=== PATIENT | male | born 1995 | race Two or more races ===

== ENCOUNTER 2017-01-08 14:29 | Emergency (ER) | payer OTHER ==
--- NOTE | 2017-01-08 16:18 | ER Document Report ---
ED GI/ - General Chief Complaint: Rib Pain Stated Complaint: ABDOMINAL PAIN Time Seen by Provider: 01/08/17 15:51 Mode of Arrival: Ambulatory Information source: Patient Notes: 20-year-old male presents to ED for right upper quadrant abdominal pain right flank pain states the pain is been bad in this area for about 3 days. He denies any fever but states he has been nausea and vomiting for close to 3 years off and on. States he has been diagnosed with H. pylori and reflux. States he was treated while in the [place] about 3 years ago and the symptoms went away 2 weeks later but then they came back. States he has had that pain in his abdomen into his esophagus off and on since 3 years ago but this pain in his upper right quadrant through to his back has been mostly for the last 3 days. TRAVEL OUTSIDE OF THE [place] IN LAST 30 DAYS: No - HPI Patient complains to provider of: Abdominal pain, Flank pain, Vomiting Onset: Other - Chronic nausea and vomiting, chronic esophageal pain, pain to the right upper quadrant through to the right upper back has been for about the last 3 days. Timing/Duration: Intermittent Quality of pain: Achy, Sharp Severity at maximum: Moderate Severity in ED: Moderate Pain Level: 4 Location: Epigastric, RUQ, Right flank Associated symptoms: Nausea, Vomiting Exacerbated by: Supine, Food Relieved by: Denies Similar symptoms previously: Yes Recently seen / treated by doctor: No - Related Data Allergies/Adverse Reactions: No Known Allergies Allergy (Verified 01/08/17 14:53) Past Medical History - General Information source: Patient - Social History Smoking Status: Never Smoker Cigarette use (# per day): No Chew tobacco use (# tins/day): No Smoking Education Provided: No Frequency of alcohol use: hx etoh abuse Drug Abuse: None 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 Lives with: Spouse/Significant other Family History: CAD, COPD, CVA, DM, Hyperlipidemia, Hypertension, Malignancy Patient has suicidal ideation: No Patient has homicidal ideation: No - Past Medical History Cardiac Medical History: Reports: None Pulmonary Medical History: Reports: None EENT Medical History: Reports: None Neurological Medical History: Reports: None Endocrine Medical History: Reports: None Renal/ Medical History: Reports: None Malignancy Medical History: Reports None GI Medical History: Reports: Hx Gastroesophageal Reflux Disease, Other - h pylori Musculoskeltal Medical History: Reports Hx Musculoskeletal Deformity, Reports Hx Musculoskeletal Trauma Skin Medical History: Reports None Psychiatric Medical History: Reports: None Traumatic Medical History: Reports: None Infectious Medical History: Reports: None Surgical Hx: Negative Past Surgical History: Reports: None - Immunizations Immunizations up to date: Yes Hx Diphtheria, Pertussis, Tetanus Vaccination: Yes Review of Systems - Review of Systems Constitutional: No symptoms reported EENT: No symptoms reported Cardiovascular: No symptoms reported Respiratory: No symptoms reported Gastrointestinal: No symptoms reported Genitourinary: No symptoms reported Male Genitourinary: No symptoms reported Musculoskeletal: No symptoms reported Skin: No symptoms reported Hematologic/Lymphatic: No symptoms reported Neurological/Psychological: No symptoms reported -: Yes All other systems reviewed and negative Physical Exam - Vital signs Vitals: Temp Pulse Resp BP Pulse Ox 99.2 F 74 16 134/79 H 96 01/08/17 14:56 01/08/17 14:56 01/08/17 14:56 01/08/17 14:56 01/08/17 14:56 Interpretation: Normal - General General appearance: Appears well, Alert - HEENT Head: Normocephalic, Atraumatic Eyes: Normal Pupils: PERRL - Respiratory Respiratory status: No respiratory distress Chest status: Nontender Breath sounds: Normal Chest palpation: Normal - Cardiovascular Rhythm: Regular Heart sounds: Normal auscultation Murmur: No - Abdominal Inspection: Normal Distension: No distension Bowel sounds: Normal Tenderness: Tender Organomegaly: No organomegaly - Back Back: Normal, Nontender - Extremities General upper extremity: Normal inspection, Nontender, Normal color, Normal ROM , Normal temperature General lower extremity: Normal inspection, Nontender, Normal color, Normal ROM , Normal temperature, Normal weight bearing. No: Pricilla's sign - Neurological Neuro grossly intact: Yes Cognition: Normal Orientation: AAOx4 Efe Coma Scale Eye Opening: Spontaneous Efe Coma Scale Verbal: Oriented [place] Coma Scale Motor: Obeys Commands Efe Coma Scale Total: 15 Speech: Normal Motor strength normal: LUE, RUE, LLE, RLE Sensory: Normal - Psychological Associated symptoms: Normal affect, Normal mood - Skin Skin Temperature: Warm Skin Moisture: Dry Skin Color: Normal Course - Re-evaluation Re-evalutation: 01/08/17 19:50 21-year-old male presents to ED for right upper quadrant right lower rib and right flank pain. He states he has had this pain off and on for 3 years but it was worse for the last 3 days. He states the pain in the upper abdomen started about 3 days ago but he does have a history of H. pylori and ulcers. He states he has an appointment with the MA on January 15. - Vital Signs Vital signs: Temp Pulse Resp BP Pulse Ox 99.2 F 74 16 134/79 H 96 01/08/17 14:56 01/08/17 14:56 01/08/17 14:56 01/08/17 14:56 01/08/17 14:56 - Laboratory Result Diagrams: 01/08/17 16:45 01/08/17 16:45 - Diagnostic Test Radiology reviewed: Image reviewed, Reports reviewed Discharge - Discharge Clinical Impression: Right upper quadrant abdominal pain Condition: Stable Disposition: HOME, SELF-CARE Instructions: Evaluation of Upper Abdominal Pain ([facility]) Additional Instructions: ABDOMINAL PAIN: There are many causes of abdominal pain. Pain can mean a serious problem requiring surgery (such as appendicitis). It can also be an innocent problem that goes away on its own (such as a viral infection). Often, time must pass to determine the cause of pain. The physician does not feel that hospitalization is necessary, at present. Things may change within the next 24 hours. Call the doctor or come back for re- examination if any problems occur, such as: (1) Pain that becomes more severe, steady, or becomes concentrated in one specific area. Also, pain that is more severe with movement or coughing. (2) Vomiting that persists or becomes more frequent. (3) Blood in the vomitus, urine, or bowel movements. Blood in the stool may have a tarry or black appearance. (4) Shaking chills or fever greater than 100 degrees F. (5) The abdomen becomes more distended or swollen. (6) Bowel movements cease. (7) Failure to improve as expected. NORMAL EXAM AND WORKUP: At this time, your examination and workup show no significant abnormality. No significant abnormal physical findings are noted. All laboratory, EKG, and imaging (x-ray, CT scans, ultrasound) studies that were ordered show no significant abnormality. Although your examination and all studies that were ordered showed no significant abnormal finding, there are no examinations and no studies that are 100% accurate. There is always the possibility that some abnormality could exist and not be detected with physical examination or within the limits and capabilities of laboratory and other studies. You should return or follow up as you were instructed on your visit today for further evaluation if your symptoms do not resolve. Acid-Suppressing Medication You have a prescription for medicine which reduces the stomach's secretion of acid. Examples include Zantac, Tagament, and Pepcid. These drugs are often used to allow healing of ulcers or esophagitis. They may be needed to prevent recurrence of ulcers in some patients, or to prevent damage from acid reflux in the esophagus. Take all medication as prescribed, even after the pain is gone. Regular antacids may be added as needed if you have symptoms while taking this medicine. These medications sometimes are prescribed for allergic reactions because they have anti-histaminic effects and relieve the rash and itching of the reaction. There are usually no side effects from this medication. But, in rare cases and particularly in the elderly, serious problems can occur. Contact your doctor if there is fever, rash, hallucinations, confusion, or unusual bruising. Contact your doctor at once if you develop lightheadedness, black or bloody stool, or bloody vomitus. FOLLOW-UP CARE: If you have been referred to a physician for follow-up care, call the physician s office for an appointment as you were instructed or within the next two days. If you experience worsening or a significant change in your symptoms, notify the physician immediately or return to the Emergency Department at any time for re-evaluation. Prescriptions: Famotidine [Pepcid 20 mg Tablet] 20 mg PO DAILY #12 tablet Forms: Elevated Blood Pressure, Return to Work
[2017-01-08 17:05] LABS: ABSOLUTE BASOPHILS # (AUTO) 0.1 10^3/uL (0.0-0.2); ABSOLUTE EOSINOPHILS # (AUTO) 0.4 10^3/uL (0.0-0.6); ABSOLUTE MONOCYTES (AUTO) 0.7 10^3/uL (0.1-1.4); ABSOLUTE NEUT (AUTO) 6.3 10^3/uL (1.7-8.2); BASOPHILS % (AUTO) 0.7 % (0-2); EOSINOPHILS % (AUTO) 4.6 % (0-6); HEMATOCRIT 46.4 % (37.9-51.0); HEMOGLOBIN 15.9 g/dL (13.5-17.0); HGB HCT DIFFERENCE 1.3; LYMPHOCYTES % (AUTO) 21.3 % (13-45); MEAN CORPUSCULAR HEMOGLOBIN 28.6 pg (27.0-33.4); MEAN CORPUSCULAR HGB CONC 34.3 g/dL (32.0-36.0); MEAN CORPUSCULAR VOLUME 84 fl (80-97); MONOCYTES % (AUTO) 7.2 % (3-13); RED BLOOD COUNT 5.55 10^6/uL (4.35-5.55); RED CELL DISTRIBUTION WIDTH 13.3 % (11.5-14.0); SEGMENTED NEUTROPHILS % (AUTO) 66.2 % (42-78); WHITE BLOOD COUNT 9.4 10^3/uL (4.0-10.5)
[2017-01-08 17:22] LABS: ALANINE AMINOTRANSFERASE 29 U/L (21-72); ALBUMIN 4.5 g/dL (3.5-5.0); ALKALINE PHOSPHATASE 67 U/L (38-126); ANION GAP 11 (5-19); ASPARTATE AMINO TRANSFERASE 23 U/L (17-59); BILIRUBIN,DIRECT 0.4 mg/dL (0.0-0.4); BILIRUBIN,TOTAL 0.5 mg/dL (0.2-1.3); BLOOD UREA NITROGEN 20 mg/dL (7-20); CALCIUM 9.7 mg/dL (8.4-10.2); CARBON DIOXIDE 27 mmol/L (22-30); CHLORIDE 104 mmol/L (98-107); CREATININE RESULT 1.21 mg/dL (0.52-1.25); GLUCOSE 94 mg/dL (75-110); LIPASE 67.2 U/L (23-300); SODIUM 141.8 mmol/L (137-145); TOTAL PROTEIN 7.4 g/dL (6.3-8.2)
--- NOTE | 2017-01-08 18:58 | RADIOLOGY REPORT (SQ) ---
EXAM DESCRIPTION: U/S ABDOMEN LIMITED W/O DOP COMPLETED DATE/TIME: 01/08/2017 6:30 pm REASON FOR STUDY: ruq abdominal pain COMPARISON: None. TECHNIQUE: Dynamic and static grayscale images acquired of the right upper quadrant and recorded on PACS. Additional selected color Doppler and spectral images recorded. LIMITATIONS: Study limited due to acoustical interference from fat or from air in the bowel. FINDINGS: PANCREAS: Visualized pancreas and duct normal. Parts of pancreas poorly seen secondary to acoustical interference from fat or from air in the bowel. LIVER: No masses. Echotexture normal. LIVER VASCULATURE: Normal directional flow of the main portal vein and hepatic veins. GALLBLADDER: No stones. Normal wall thickness. No pericholecystic fluid. ULTRASOUND-DETECTED SANZ'S SIGN: Negative. INTRAHEPATIC DUCTS AND COMMON DUCT: CBD and intrahepatic ducts normal caliber. No filling defects. INFERIOR VENA CAVA: Normal flow. AORTA: No aneurysm. RIGHT KIDNEY: Normal size. Normal echogenicity. No solid or suspicious masses. No hydronephrosis. No calcifications. PERITONEAL CAVITY AND RIGHT PLEURAL SPACE: No ascites or effusions. OTHER: No other significant finding. IMPRESSION: NORMAL RIGHT UPPER QUADRANT ULTRASOUND. PANCREAS PARTIALLY OBSCURED BY GAS. TECHNICAL DOCUMENTATION: JOB ID: [id number] [email or web address]- All Rights Reserved
[2017-01-08] MEDS ORDERED: CALCIUM CARBONATE 500 MG TAB.CHEW PO ONE (19:40)
[2017-01-08 20:04] VITALS: BP 123/73
== END 2017-01-08 20:04 | disposition home or self-care (01) ==
LOC: ER 14:29
DX: R10.11 Right upper quadrant pain (principal); R10.9 Unspecified abdominal pain; R07.81 Pleurodynia; R11.2 Nausea with vomiting, unspecified; Z87.19 Personal history of other diseases of the digestive system
CPT/HCPCS: 36415; 76705; 80053; 83690; 85025; 99284

== ENCOUNTER 2020-04-13 20:44 | Emergency (ER) | payer OTHER ==
--- NOTE | 2020-04-13 21:30 | ER Document Report ---
ED Extremity Problem, Lower - General Chief Complaint: Foot Pain Stated Complaint: FOOT PAIN Time Seen by Provider: 04/13/20 21:23 Mode of Arrival: Ambulatory Information source: Patient Notes: Patient is a 25-year-old male comes emergency room complaining of a blister type lesion to the right foot at the base of the great toe. 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 Patient states he knew that there was something that was bothering him but did not know what. We got home he took it off and he had a blister that was turning black in the middle on the ball of the right foot big toe. He also noticed that there was some redness to the rest of the toe and surrounding area. Since that point time that area has gotten a little bit more pronounced in its presentation of being necrotic and has gotten more red around the toe itself. Patient's has cleaned it twice but it does not seem to be getting much better so he is here for evaluation. Patient only has a medical history for hypertension and bipolar disease. As well as some reflux. Patient does not smoke. Patient denies any history of diabetes. TRAVEL OUTSIDE OF THE [place] IN LAST 30 DAYS: No - Related Data Allergies/Adverse Reactions: No Known Allergies Allergy (Verified 01/08/17 14:53) Past Medical History - General Information source: Patient - Social History Smoking Status: Never Smoker Cigarette use (# per day): No Chew tobacco use (# tins/day): No Smoking Education Provided: No Frequency of alcohol use: None Drug Abuse: None Lives with: Family Family History: Reviewed & Not Pertinent, CAD, COPD, CVA, DM, Hyperlipidemia, Hypertension, Malignancy Renal/ Medical History: Denies: Hx Peritoneal Dialysis GI Medical History: Reports: Hx Gastroesophageal Reflux Disease Musculoskeletal Medical History: Reports Hx Musculoskeletal Deformity, Reports Hx Musculoskeletal Trauma - Immunizations Immunizations up to date: Yes Hx Diphtheria, Pertussis, Tetanus Vaccination: Yes Review of Systems - Review of Systems Constitutional: No symptoms reported EENT: No symptoms reported Cardiovascular: No symptoms reported Respiratory: No symptoms reported Gastrointestinal: No symptoms reported Genitourinary: No symptoms reported Male Genitourinary: No symptoms reported Musculoskeletal: No symptoms reported Skin: See HPI, Lesions Hematologic/Lymphatic: No symptoms reported Neurological/Psychological: No symptoms reported -: Yes All other systems reviewed and negative Physical Exam - Vital signs Vitals: Temp Pulse Resp BP Pulse Ox 97.9 F 66 17 152/91 H 98 04/13/20 20:50 04/13/20 20:50 04/13/20 20:50 04/13/20 20:50 04/13/20 20:50 Interpretation: Hypertensive - Notes Notes: PHYSICAL EXAMINATION: GENERAL: Patient is a well-nourished well-developed 25-year-old male no apparent distress but does appear uncomfortable. HEAD: Atraumatic, normocephalic. LUNGS: Breath sounds clear to auscultation bilaterally and equal. No wheezes rales or rhonchi. HEART: Regular rate and rhythm without murmurs Musculoskeletal: Normal range of motion, no pitting or edema. No cyanosis. NEUROLOGICAL: Normal speech, normal gait. Normal sensory, motor exams PSYCH: Normal mood, normal affect. SKIN: Examination patient's area concern is at the base of his right great toe lateral side he has a 1 cm x 1 cm blister appearance that has ruptured with a half a centimeter high wall into the dermis and not black and echar in the center. Patient has flexion-extension of his toe but it does appear to be comfortable. He has good cap refill in nailbeds of the toes of the right foot. He has flexion-extension of all toes the right foot. The great toe does appear to be somewhat more swollen than the rest of the toes. And is much more erythematous on the great toe circumferentially then it is to the second toe. The dorsum of the foot has a slight amount of erythema as well. Course - Re-evaluation Re-evalutation: 04/13/20 21:26 I discussed the case with my attending Dr. Panchal she feels that the sodium hydroxide has very limited potency and that evaluation of it shows it to be a very superficial lesion or we can treat it with antibiotics and cream. I have elected to go ahead and do an x-ray just to make sure there is no deep penetration that I can see. I really believe this to be just a small blister that has some black echar on it. 04/13/20 22:59 Patient's x-ray came back not showing any deep penetration or gaseous formation. Given that it appears to be superficial we will go and place him on some doxycycline twice a day for the next 10 days. I am also given referral to [facility]ound care and have them give them a call tomorrow or Friday to set up an appointment. Have instructed patient should he get worse she is to return to ER especially if he spikes a fever or the toe starts to get much bigger. - Vital Signs Vital signs: Temp Pulse Resp BP Pulse Ox 97.9 F 66 17 152/91 H 98 04/13/20 20:50 04/13/20 20:50 04/13/20 20:50 04/13/20 20:50 04/13/20 20:50 04/13/20 23:00 Currently had no tach so I went ahead and cleaned and dressed the wound. I applied some Neosporin to the wound with nonstick pad it with 2 x 2's and then wrapped in Kerlix. Patient stated felt much better that way. Discharge - Discharge Clinical Impression: Cellulitis of foot, Chemical burn Condition: Stable Disposition: HOME, SELF-CARE Instructions: Oral Narcotic Medication ([facility]), Soap Cleansing ([facility]) Additional Instructions: As we discussed I want you to soak your foot in the Hibiclens solution 3 times a day with warm water. Let air dry really good before applying any more antibiotic. I am also going to write you for Bactroban cream or ointment which you can apply to the wound for the next several days when you change her dressing. I am also pushing oral antibiotics as well. I am giving you the information to contact [facility] which is the wound care clinic you can contact them telling them that we have requested she be evaluated for the wound on your foot and set up an appointment. As we have also discussed that should you notice this increasing and getting worse you should return to ER immediately for reevaluation. I have given you referral to [facility] which runs the wound care clinic as stated contact them to see how you can get into the wound care. Prescriptions: Mupirocin [Bactroban 2% Ointment 22 gm] 1 applic TP TID #1 tube Doxycycline Hyclate [Morgidox] 100 mg PO BID #20 capsule Forms: Elevated Blood Pressure, Return to Work Referrals: [facility] [Provider Group] - Follow up as needed
--- NOTE | 2020-04-13 22:20 | RADIOLOGY REPORT (SQ) ---
EXAM DESCRIPTION: FOOT RIGHT COMPLETE CLINICAL HISTORY: 25 years Male, necrotic appearing lesion COMPARISON: None. FINDINGS: There is focal soft tissue swelling over the distal foot along the dorsal surface. Alignment the foot is anatomic. Bone mineralization is normal. No radiopaque foreign body in the soft tissues. No fracture is seen. No erosions or periostitis. IMPRESSION: Soft tissue swelling. No air in the soft tissues. No fracture.
[2020-04-13] MEDS ORDERED: DOXYCYCLINE HYCLATE 100 MG TABLET PO ONE (22:58)
[2020-04-13] MEDS ORDERED: HYDROCODONE/ACETAMINOPHEN 5-325 MG (6 TAB/ER DISP) PO PRN (22:59)
[2020-04-14 05:16] VITALS: BP 140/84
== END 2020-04-13 23:45 | disposition home or self-care (01) ==
LOC: ER 20:44
DX: L03.115 Cellulitis of right lower limb (principal); T54.3X1A Toxic effect of corrosive alkalis and alkali-like substances, accidental (unintentional), initial encounter; M79.671 Pain in right foot; Y92.511 Restaurant or cafe as the place of occurrence of the external cause; Y99.0 Civilian activity done for income or pay
CPT/HCPCS: 99284

== ENCOUNTER 2020-04-17 11:39 | Emergency (ER) | payer OTHER ==
[2020-04-17 11:45] VITALS: BP 141/84
[2020-04-17] MEDS ORDERED: CEPHALEXIN 500 MG CAPSULE PO ONE (12:37)
[2020-04-17] MEDS ORDERED: IBUPROFEN 800 MG TABLET PO ONE (12:37)
--- NOTE | 2020-04-17 12:52 | ER Document Report ---
HPI - HPI Patient complains to provider of: Wound check Time Seen by Provider: 04/17/20 12:30 Onset: Other - 5 days Onset/Duration: Persistent Quality of pain: Achy Pain Level: 4 Context: Patient states that he burned his foot with a chemical 5 days ago. Patient states he was wearing shoes at the time. Patient states that he was cleaning the wound with peroxide initially but has since switched to an antibacterial soap. Patient states he was seen here recently and placed on antibiotics. Patient states that the wound was looking infected which prompted his visit. Patient denies any fever. Patient is concerned about possible diabetes as he has a family history of diabetes. Associated Symptoms: Other - Tenderness to right foot wound. denies: Fever Exacerbated by: Movement, Walking Relieved by: Denies Similar symptoms previously: No Recently seen / treated by doctor: Yes - ROS ROS below otherwise negative: Yes Systems Reviewed and Negative: Yes All other systems reviewed and negative - CONSTITUTIONAL Constitutional: DENIES: Fever, Chills - GASTROINTESTINAL Gastrointestinal: DENIES: Nausea, Patient vomiting - MUSCULOSKELETAL Musculoskeletal: REPORTS: Extremity pain - DERM Skin Color: Erythema Notes: Wound to right foot Past Medical History - General Information source: Patient - Social History Smoking Status: Never Smoker Frequency of alcohol use: None Drug Abuse: None 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 Family History: Reviewed & Not Pertinent, CAD, COPD, CVA, DM, Hyperlipidemia, Hypertension, Malignancy Renal/ Medical History: Denies: Hx Peritoneal Dialysis GI Medical History: Reports: Hx Gastroesophageal Reflux Disease Musculoskeletal Medical History: Reports Hx Musculoskeletal Deformity, Reports Hx Musculoskeletal Trauma Psychiatric Medical History: Reports: Hx Attention Deficit Hyperactivity Disorder, Hx Bipolar Disorder, Hx Depression, Hx Post Traumatic Stress Disorder Surgical Hx: Negative - Immunizations Immunizations up to date: Yes Hx Diphtheria, Pertussis, Tetanus Vaccination: Yes Vertical Provider Document - CONSTITUTIONAL Agree With Documented VS: Yes Exam Limitations: No Limitations General Appearance: WD/WN, No Apparent Distress - INFECTION CONTROL TRAVEL OUTSIDE OF THE [place] IN LAST 30 DAYS: No - HEENT HEENT: Atraumatic, Normocephalic - NECK Neck: Normal Inspection - RESPIRATORY Respiratory: Breath Sounds Normal, No Respiratory Distress - CARDIOVASCULAR Cardiovascular: Regular Rate, Regular Rhythm Pulses: Normal: Dorsalis pedis - MUSCULOSKELETAL/EXTREMETIES Musculoskeletal/Extremeties: MAEW, Tender - Tenderness right great foot, patient with ulceration with minimal erythema surrounding wound margins with an eschar over lying the wound bed - NEURO Level of Consciousness: Awake, Alert, Appropriate Motor/Sensory: No Motor Deficit - DERM Integumentary: Warm, Dry Notes: Wound erythema surrounding the wound to lateral aspect of right metatarsal Course - Re-evaluation Re-evalutation: 04/17/20 12:50 Patient was concerned about possible underlying diabetes, Accu-Chek reviewed, no concern for diabetes. Patient encouraged to continue his doxycycline as well as mupirocin in addition to Keflex that we will be adding today. Patient advised on wound management and worsening signs that he should return immediately for. Patient verbalized understanding and is agreeable discharge plan of care. - Vital Signs Vital signs: Temp Pulse Resp BP Pulse Ox 97.7 F 70 16 141/84 H 99 04/17/20 11:43 04/17/20 11:43 04/17/20 11:43 04/17/20 11:43 04/17/20 11:43 Discharge - Discharge Clinical Impression: Visit for wound check, Cellulitis of foot, Chemical burn Condition: Stable Disposition: HOME, SELF-CARE Instructions: Cellulitis ([facility]), Cephalexin ([facility]) Additional Instructions: Return immediately for any new or worsening symptoms Followup with your primary care provider, call tomorrow to make a followup appointment Continue taking the doxycycline and mupirocin ointment as previously prescribed in addition to the antibiotic added today. Use a nonstick dressing to your wound. Prescriptions: Cephalexin Monohydrate [Keflex 500 mg Capsule] 500 mg PO Q6H 7 Days #28 capsule Forms: Return to Work Referrals: [facility] [Primary Care Provider] - Follow up as needed [facility] [Provider Group] - Follow up as needed
== END 2020-04-17 12:58 | disposition home or self-care (01) ==
LOC: ER 11:39
DX: T65.91XA Toxic effect of unspecified substance, accidental (unintentional), initial encounter (principal); T25.421A Corrosion of unspecified degree of right foot, initial encounter; L08.9 Local infection of the skin and subcutaneous tissue, unspecified; Z83.3 Family history of diabetes mellitus
CPT/HCPCS: 82962; 99283

== ENCOUNTER 2020-04-18 16:57 | Emergency (ER) | payer OTHER ==
[2020-04-18] MEDS ORDERED: DIPH/PERTUSS(ACELL)/TETANUS VAC/PF 0.5 ML SYR (>=10YO) IM ONE (17:32)
--- NOTE | 2020-04-18 17:39 | ER Document Report ---
ED Medical Screen (RME) - General Chief Complaint: Foot Injury Stated Complaint: RIGHT FOOT PAIN Time Seen by Provider: 04/18/20 17:25 Primary Care Provider: [facility] [Primary Care Provider] - Follow up as needed TRAVEL OUTSIDE OF THE [place] IN LAST 30 DAYS: No - HPI Notes: 04/18/20 17:40 25-year-old male hx of HTN and bipolar disorder presents to the emergency room for reevaluation after he accidentally burned himself on 04/12/2020 to his right foot with sodium hydroxide while at work. He sustained a burn that left a 1.5 x 2 cm burn to the medial aspect of his right foot. It was seen on 04/13/2020, prescribed doxycycline and Bactroban, x-rays were obtained. Patient states has been trying to get into wound clinic but he has to go through the [place] and he still waiting for referral. Patient reports his pain is getting progressively worse. Reports pain when he is moving is 5 out of 5. He is using crutches to ambulate around. Patient is still taking doxycycline currently but is concerned because the ulcer is becoming worse as well as the pain. I have greeted and performed a rapid initial assessment of this patient. A comprehensive ED assessment and evaluation of the patient, analysis of test results and completion of the medical decision making process will be conducted by additional ED providers. PHYSICAL EXAMINATION: GENERAL: Well-appearing, well-nourished and in no acute distress. HEAD: Atraumatic, normocephalic. Musculoskeletal: Normal range of motion. see skin note. NEUROLOGICAL: Normal speech, normal gait. SKIN: Warm, Dry, normal turgor, no rashes or lesions noted. right 1st MTJ with ulcer approx [id number] with surrounding erythema, black in color. Tenderness on palpation. No drainage from wound. - Related Data Allergies/Adverse Reactions: No Known Allergies Allergy (Verified 01/08/17 14:53) Past Medical History Renal/ Medical History: Denies: Hx Peritoneal Dialysis GI Medical History: Reports: Hx Gastroesophageal Reflux Disease Musculoskeltal Medical History: Reports Hx Musculoskeletal Deformity, Reports Hx Musculoskeletal Trauma Psychiatric Medical History: Reports: Hx Attention Deficit Hyperactivity Disorder, Hx Bipolar Disorder, Hx Depression, Hx Post Traumatic Stress Disorder - Immunizations Immunizations up to date: Yes Hx Diphtheria, Pertussis, Tetanus Vaccination: Yes Physical Exam - Vital signs Vitals: Temp Pulse Resp BP Pulse Ox 98.2 F 71 20 158/99 H 96 04/18/20 17:14 04/18/20 17:14 04/18/20 17:14 04/18/20 17:14 04/18/20 17:14 Course - Vital Signs Vital signs: Temp Pulse Resp BP Pulse Ox 98.2 F 71 20 158/99 H 96 04/18/20 17:14 04/18/20 17:14 04/18/20 17:14 04/18/20 17:14 04/18/20 17:14 Doctor's Discharge - Discharge [facility]errals: [facility] [Primary Care [facility]] - Follow up as needed
--- NOTE | 2020-04-18 18:09 | ER Document Report ---
ED Extremity Problem, Lower - General Chief Complaint: Chemical Burn Stated Complaint: RIGHT FOOT PAIN Time Seen by Provider: 04/18/20 17:25 Primary Care Provider: DEYSI HUNG [NO LOCAL MD] - Follow up as needed Notes: 04/18/20 17:29 - ED Nursing Note by ASACONNIENICOLETTE [facility] Num: [id number] : 1995 Patient Age: 25 patient here today for chemical burn to right foot from sodium hydroxide. patient states it spilled on his foot at work on 04/12/20. patient states the burn appears to be deeper than when it first happened. patient states hes waiting for a referral to [place] patient breaths e/u, nad Initialized on 04/18/20 17:29 - END OF NOTE ED Medical Screen (Salma thomas) - General Chief Complaint: Foot Injury Stated Complaint: RIGHT FOOT PAIN Time Seen by Provider: 04/18/20 17:25 Primary Care Provider: DEYSI HUNG [Primary Care Provider] - Follow up as needed TRAVEL OUTSIDE OF THE [place] IN LAST 30 DAYS: No - HPI Notes: 04/18/20 17:40 25-year-old male hx of HTN and bipolar disorder presents to the emergency room for reevaluation after he accidentally burned himself on 04/12/2020 to his right foot with sodium hydroxide while at work. He sustained a burn that left a 1.5 x 2 cm burn to the medial aspect of his right foot. It was seen on 04/13/2020, prescribed doxycycline and Bactroban, x-rays were obtained. Patient states has been trying to get into wound clinic but he has to go through the [place] and he still waiting for referral. Patient reports his pain is getting progressively worse. Reports pain when he is moving is 5 out of 5. He is using crutches to ambulate around. Patient is still taking doxycycline currently but is concerned because the ulcer is becoming worse as well as the pain. I have greeted and performed a rapid initial assessment of this patient. A comprehensive ED assessment and evaluation of the patient, analysis of test results and completion of the medical decision making process will be conducted by additional ED providers. PHYSICAL EXAMINATION: GENERAL: Well-appearing, well-nourished and in no acute distress. HEAD: Atraumatic, normocephalic. Musculoskeletal: Normal range of motion. see skin note. NEUROLOGICAL: Normal speech, normal gait. SKIN: Warm, Dry, normal turgor, no rashes or lesions noted. right 1st MTJ with ulcer approx [id number] with surrounding erythema, black in color. Tenderness on palpation. No drainage from wound. 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 They use high strength sodium hydroxide and these are in 600 gallon tanks usually 70 pound holding jugs apiece. Patient reports 1 week ago he was exposed to this on his right foot through the leather and rubber boots that he was wearing. They also wear mask and goggles and gloves and special PPE for this cleansing. He said he accidentally burned himself on 12 April to the right foot. This left a skin erosion that is black around 2 cm diameter on the right metatarsal head first toe. Patient reports initially the injury was not painful and now the entire metatarsal area and medial and distal tip of the first toe is tender to palpation and walking. He has been using crutches. He also is applying some white-cream question Silvadene to the area as well as taking doxycycline by p.o. I spoke with Dr. Marie orthopedics promotions director today and he advises following up with the [place] rod buster helper or orthopedic.I spoke with specialist Won and by 1839 I spoke with orthopedic Dr. Woodard who advises podiatry follow up. Also aamir gordon called and spoke with Dr. Pastrana the rod buster helper on-call and he advises follow-up with PCM and will get a referral for this marine. This occurred at 1844. TRAVEL OUTSIDE OF THE [place] IN LAST 30 DAYS: No - Related Data Allergies/Adverse Reactions: No Known Allergies Allergy (Verified 01/08/17 14:53) Home Medications: propanolol, sertraline, adderall, depakote, omeprazole Past Medical History - General Information source: Patient - Social History Smoking Status: Never Smoker Cigarette use (# per day): No Chew tobacco use (# tins/day): No Smoking Education Provided: No Frequency of alcohol use: None Drug Abuse: None Lives with: Family Family History: Reviewed & Not Pertinent, CAD, COPD, CVA, DM, Hyperlipidemia, Hypertension, Malignancy Patient has suicidal ideation: No Patient has homicidal ideation: No Renal/ Medical History: Denies: Hx Peritoneal Dialysis GI Medical History: Reports: Hx Gastroesophageal Reflux Disease Musculoskeletal Medical History: Reports Hx Musculoskeletal Deformity, Reports Hx Musculoskeletal Trauma Psychiatric Medical History: Reports: Hx Attention Deficit Hyperactivity Disorder, Hx Bipolar Disorder, Hx Depression, Hx Post Traumatic Stress Disorder - Immunizations Immunizations up to date: Yes Hx Diphtheria, Pertussis, Tetanus Vaccination: Yes Review of Systems - Review of Systems Constitutional: No symptoms reported EENT: No symptoms reported Cardiovascular: No symptoms reported Respiratory: No symptoms reported Gastrointestinal: No symptoms reported Genitourinary: No symptoms reported Male Genitourinary: No symptoms reported Musculoskeletal: See HPI, Joint pain, Joint swelling Skin: See HPI, Change in color Hematologic/Lymphatic: No symptoms reported Neurological/Psychological: No symptoms reported Physical Exam - Vital signs Vitals: Temp Pulse Resp BP Pulse Ox 98.2 F 71 20 158/99 H 96 04/18/20 17:14 04/18/20 17:14 04/18/20 17:14 04/18/20 17:14 04/18/20 17:14 Interpretation: Hypertensive - General General appearance: Appears well, Alert - HEENT Head: Normocephalic, Atraumatic Eyes: Normal Pupils: PERRL - Respiratory Respiratory status: No respiratory distress Chest status: Nontender Breath sounds: Normal Chest palpation: Normal - Cardiovascular Rhythm: Regular Heart sounds: Normal auscultation Murmur: No - Abdominal Inspection: Normal Distension: No distension Bowel sounds: Normal Tenderness: Nontender Organomegaly: No organomegaly - Rectal Prostate: Other - deferred - Genitourinary Scrotum: Other - deferred - Back Back: Normal, Nontender - Extremities General upper extremity: Normal inspection, Nontender, Normal color, Normal ROM, Normal temperature General lower extremity: Tender - right 1st MT head medial erosion with eschar 2 cm gilma with surrounding erythema with tenderness on p/p, Normal ROM, Normal strength, Normal temperature, Normal weight bearing. No: Pricilla's sign - Neurological Neuro grossly intact: Yes Cognition: Normal Orientation: AAOx4 Efe Coma Scale Eye Opening: Spontaneous [place] Coma Scale Verbal: Oriented [place] Coma Scale Motor: Obeys Commands [place] Coma Scale Total: 15 Speech: Normal Motor strength normal: LUE, RUE, LLE, RLE Sensory: Normal - Psychological Associated symptoms: Normal affect, Normal mood - Skin Skin Temperature: Warm Skin Moisture: Dry Skin Color: Normal Course - Vital Signs Vital signs: Temp Pulse Resp BP Pulse Ox 98.2 F 71 20 158/99 H 96 04/18/20 17:14 04/18/20 17:14 04/18/20 17:14 04/18/20 17:14 04/18/20 17:14 - Laboratory Result Diagrams: 04/18/20 17:50 04/18/20 17:50 Laboratory results interpreted by me: 04/18/20 04/18/20 17:50 17:50 Band Neutrophils % 1 L Sodium 135.7 L BUN 23 H - Diagnostic Test Radiology reviewed: Reports reviewed Discharge - Discharge Clinical Impression: Sodium hydroxide burn, Cellulitis of foot, Visit for wound check Wound, open, foot Qualifiers: Encounter type: initial encounter Laterality: right Qualified Code(s): S91.301A - Unspecified open wound, right foot, initial encounter Condition: Stable Disposition: HOME, SELF-CARE Additional Instructions: [place] and be referred to the rod buster helper Dr. Timmons for reinspection and care for your foot wound.. Avoid using your right foot and continue with crutches until seen by the specialist. Avoid using Silvadene until seen by specialist. May use lukewarm water that has been boiled and allowed to cool to room temperature and 1 teaspoon of Epsom salt added while water was boiled. Perform wet-to-dry soaks for 5 minutes twice a day. Pat dry. Hold doxycycline and cream use. Prescriptions: Sulfamethoxazole/Trimethoprim [Bactrim Ds Tablet] 1 tab PO BID #20 tablet Cephalexin Monohydrate [Keflex 500 mg Capsule] 500 mg PO BID 5 Days #20 capsule Forms: Return to Work [facility]errals: [facility] [NO LOCAL MD] - Follow up as needed
--- NOTE | 2020-04-18 18:09 | RADIOLOGY REPORT (SQ) ---
EXAM DESCRIPTION: FOOT RIGHT COMPLETE IMAGES COMPLETED DATE/TIME: 04/18/2020 5:58 pm REASON FOR STUDY: burn to R big toe, pain becoming worse COMPARISON: None. NUMBER OF VIEWS: Three views. TECHNIQUE: AP, lateral and oblique radiographic images acquired of the right foot. LIMITATIONS: None. FINDINGS: MINERALIZATION: Normal. BONES: No acute fracture or dislocation. No worrisome bone lesions. JOINTS: No effusions. SOFT TISSUES: Small ulceration overlying the proximal phalanx of the great toe on the medial aspect. OTHER: No other significant finding. IMPRESSION: Soft tissue defect. No underlying bony abnormality. TECHNICAL DOCUMENTATION: JOB ID: [id number] 2010 [employer]- All Rights Reserved Reading location - IP/workstation name: [email or web address]
[2020-04-18 18:20] LABS: HEMATOCRIT 45.3 % (37.9-51.0); HEMOGLOBIN 15.4 g/dL (13.5-17.0); MEAN CORPUSCULAR HEMOGLOBIN 29.4 pg (27.0-33.4); MEAN CORPUSCULAR HGB CONC 34.1 g/dL (32.0-36.0); MEAN CORPUSCULAR VOLUME 86 fl (80-97); RED BLOOD COUNT 5.25 10^6/uL (4.35-5.55); RED CELL DISTRIBUTION WIDTH 12.8 % (11.5-14.0); WHITE BLOOD COUNT 9.1 10^3/uL (4.0-10.5)
[2020-04-18 18:37] LABS: ALBUMIN 4.1 g/dL (3.5-5.0); ALKALINE PHOSPHATASE 56 U/L (38-126); ANION GAP 7 (5-19); ASPARTATE AMINO TRANSFERASE 26 U/L (17-59); BILIRUBIN,DIRECT 0.1 mg/dL (0.0-0.4); BILIRUBIN,TOTAL 0.3 mg/dL (0.2-1.3); BLOOD UREA NITROGEN 23 mg/dL (7-20); CALCIUM 9.1 mg/dL (8.4-10.2); CARBON DIOXIDE 27 mmol/L (22-30); CHLORIDE 102 mmol/L (98-107); GLUCOSE 91 mg/dL (75-110); POTASSIUM 4.4 mmol/L (3.6-5.0); TOTAL PROTEIN 6.9 g/dL (6.3-8.2)
[2020-04-18] MEDS ORDERED: VANCOMYCIN HCL INJ 1000 MG VIAL IV ONE (18:42)
[2020-04-18 18:43] LABS: ABSOLUTE LYMPHOCYTES# (MANUAL) 4.1 10^3/uL (0.5-4.7); ABSOLUTE MONOCYTES # (MANUAL) 0.5 10^3/uL (0.1-1.4); BAND NEUTROPHILS % (MANUAL) 1 % (3-5); BASOPHILS % (MANUAL) 0 % (0-2); EOSINOPHILS % (MANUAL) 5 % (0-6); LYMPHOCYTES % (MANUAL) 38 % (13-45); METAMYELOCYTES % (MANUAL) 1 % (0-1); MONOCYTES % (MANUAL) 6 % (3-13); RBC MORPHOLOGY COMMENT NORMO-CYTIC/CHROMIC; SEGMENTED NEUTROPHILS % (MAN) 42 % (42-78); TOTAL CELLS COUNTED 100
[2020-04-18] MEDS ORDERED: PIPERACILLIN/TAZOBACTAM 3.375 GM VIAL IV ONE (18:43)
[2020-04-18 18:44] LABS: PLATELET CLUMPS PRESENT; PLATELET COMMENT ADEQUATE; PLATELET COUNT 196 10^3/uL (150-450)
[2020-04-18 22:19] VITALS: BP 136/93
== END 2020-04-18 22:15 | disposition home or self-care (01) ==
LOC: ER 16:57
DX: T54.3X1A Toxic effect of corrosive alkalis and alkali-like substances, accidental (unintentional), initial encounter (principal); T25.421A Corrosion of unspecified degree of right foot, initial encounter; Y93.89 Activity, other specified; Y99.0 Civilian activity done for income or pay; L03.119 Cellulitis of unspecified part of limb; I10 Essential (primary) hypertension; F90.9 Attention-deficit hyperactivity disorder, unspecified type; K21.9 Gastro-esophageal reflux disease without esophagitis; F31.9 Bipolar disorder, unspecified; Z79.899 Other long term (current) drug therapy; Z23 Encounter for immunization
CPT/HCPCS: 99284; 96375; 96365; 36415; 85025; 80053; 73630; 90715; J3370; J2543